=== PATIENT | female | born 1980 | race Two or more races ===

== ENCOUNTER 2016-12-20 19:52 | Emergency (ER) | payer OTHER ==
[2016-12-20] MEDS ORDERED: methylPREDNISolone SOD SUCC 125 MG/2 ML VIAL IVP ONE (19:54)
[2016-12-20] MEDS ORDERED: RANITIDINE 50 MG/2 ML VIAL IVP ONE (19:54)
[2016-12-20] MEDS ORDERED: NS 1,000 ML IV ONE (19:54)
--- NOTE | 2016-12-20 19:59 | EDPHY ---
H & P Time Seen by Provider: 12/20/16 19:54 HPI/ROS: 5 minutes prior to arrival this patient was stone in the left leg by a bee while moving. She lives very [place] and came in by private vehicle with her daughter. She has a history of significant Hymenoptera allergy that included respiratory difficulties in the past she is quite apprehensive about the sting and requests treatment. Currently she complains of the localized symptoms at the left leg -burning discomfort and swelling to the leg. ROS: No constitutional symptoms HEENT: No dysphonia. No facial complaints or feeling of swelling. Pulmonary: No wheezing or shortness of breath Cardiovascular: No heart palpitations or lightheadedness GI: No nausea vomiting Integumentary: No skin skin complaints other than the left leg bee sting. Neuro: No focal numbness tingling weakness 7 point ROS is otherwise negative Source: Patient Exam Limitations: No limitations - Family History Significant Family History: No pertinent family hx - Social History Smoking Status: Never smoked Alcohol Use: Occasionally Drug Use: None - Physical Exam Exam: General Appearance: Alert, no distress. Eyes: Pupils equal and round no pallor or injection. ENT, Mouth: Mucous membranes moist. Respiratory: There are no retractions, lungs are clear to auscultation. Cardiovascular: Regular rate and rhythm. Gastrointestinal: Abdomen is soft and nontender, no masses, bowel sounds normal. Neurological: GCS 15 with no focal deficits Skin: the patient has a erythematous papule to the left proximal posterior calf with mild surrounding erythema. No foreign body on direct examination. No other skin lesions or urticaria at this time. Musculoskeletal: Neck is supple nontender. Extremities are symmetrical, full range of motion. Psychiatric: anxious. Otherwise mood and affect are normal DIFFERENTIAL DIAGNOSIS: After history and physical exam differential diagnosis was considered for Be staying, early localized allergic response, potential impending anaphylaxis Constitutional: Initial Vital Signs Temperature (C) 36.7 C 12/20/16 20:11 Heart Rate 81 12/20/16 20:11 Respiratory Rate 20 12/20/16 20:11 Blood Pressure 113/72 12/20/16 20:11 O2 Sat (%) 98 12/20/16 20:11 O2 Delivery Mode Room Air Allergies/Adverse Reactions: No Known Allergies Allergy (Unverified 12/20/16 20:06) Home Medications: Medication Instructions Recorded EPINEPHrine [Epipen 0.3 MG] 0.3 mg IM ONCE PRN #1 syr 12/20/16 FLUoxetine [PROzac] 20 mg PO 12/20/16 predniSONE 40 mg PO DAILY #6 tab 12/20/16 traMADol [Ultram 50 mg (*)] 50 - 100 mg PO Q4 PRN #12 tab 12/20/16 Medical Decision Making ED Course/Re-evaluation: given patient's history of significant respiratory symptoms associated with prior bee sting, will treat her aggressively with IV Solu-Medrol -125, Benadryl 50 mg and Zantac 50 mg. I counseled regarding this. She is placed on a monitor and IV is established with above meds administered upon arrival. The patient complained of significant pain at the site of the sting treated initially with Tylenol and some local lidocaine gel without significant improvement then treated with Toradol 30 mg IV some improvement. She continues to complain of significant pain at the site treat with ice and tramadol with partial improvement. Over 90 minutes observation patient developed no systemic allergic symptoms. She is discharged with EpiPen, prednisone given appropriate precautions about returning for any significant worsening of her symptoms. While this patient had localized symptoms she never developed in a systemic symptoms that would suggest anaphylaxis. - Data Points Medications Given: Discontinued Medications Acetaminophen (Tylenol) 1,000 mg PO EDNOW ONE Stop: 12/20/16 20:18 Last Admin: 12/20/16 20:25 Dose: 1,000 mg Diphenhydramine HCl (Benadryl Injection) 50 mg IVP EDNOW ONE Stop: 12/20/16 19:55 Last Admin: 12/20/16 20:09 Dose: 50 mg Sodium Chloride (Ns) 1,000 mls @ 0 mls/hr IV ONCE ONE; Wide Open PRN Reason: Protocol Stop: 12/20/16 19:55 Last Admin: 12/20/16 20:09 Dose: 1,000 mls Ketorolac Tromethamine (Toradol) 30 mg IVP EDNOW ONE Stop: 12/20/16 20:27 Last Admin: 12/20/16 20:29 Dose: 30 mg Methylprednisolone Sodium Succinate (Solu-Medrol) 125 mg IVP EDNOW ONE Stop: 12/20/16 19:55 Last Admin: 12/20/16 20:08 Dose: 125 mg Ranitidine HCl (Zantac) 50 mg IVP EDNOW ONE Stop: 12/20/16 19:55 Last Admin: 12/20/16 20:08 Dose: 50 mg Tetracaine/Epinephrine/Lidocaine (Let Gel Topical) 1 ea TP EDNOW ONE Stop: 12/20/16 20:18 Last Admin: 12/20/16 20:25 Dose: 1 ea Tramadol HCl (Ultram) 50 mg PO EDNOW ONE Stop: 12/20/16 21:19 Last Admin: 12/20/16 21:21 Dose: 50 mg Departure - Departure Disposition: Home, Routine, Self-Care Clinical Impression: Bee sting, 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 No driving, alcohol or come tramadol EpiPen if you are ever far from Medical Facility in develops significant allergic reaction in the future. Return emergency department if he develops shortness of breath, wheezing, lightheadedness, vomiting or other concerns. Referrals: Tasia Taylor MD [Primary Care Provider] - As per Instructions Stand Alone Forms: Work Excuse Prescriptions: EPINEPHrine [Epipen 0.3 MG] 0.3 mg IM ONCE PRN #1 syr PRN Reason: bee sting with allergy predniSONE 40 mg PO DAILY #6 tab traMADol [Ultram 50 mg (*)] 50 - 100 mg PO Q4 PRN #12 tab PRN Reason: breakthrough pain
[2016-12-20 20:16] VITALS: TEMP 98.1
[2016-12-20] MEDS ORDERED: ACETAMINOPHEN 500 MG TAB PO ONE (20:17)
[2016-12-20] MEDS ORDERED: LET GEL TOPICAL 1 EA SYR TP ONE (20:17)
[2016-12-20] MEDS ORDERED: KETOROLAC 30 MG/1 ML SDV IVP ONE (20:26)
[2016-12-20 21:14] VITALS: BP 120/94; PULSE 77; RESP 16; O2SAT 95
[2016-12-20] MEDS ORDERED: traMADol 50 MG TAB PO ONE (21:18)
== END 2016-12-20 21:52 | disposition home or self-care (01) ==
LOC: CED 19:52
DX: T63.441A Toxic effect of venom of bees, accidental (unintentional), initial encounter (principal); E86.9 Volume depletion, unspecified
CPT/HCPCS: J1200; J1885; J2780